=== PATIENT | male | born 1985 | race Caucasian/White ===

== ENCOUNTER 2016-06-02 06:03 | Emergency (ER) | payer SELFPAY ==
[2016-06-02 06:30] VITALS: RESP 16; TEMP 98.5
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
== END 2016-06-02 06:33 ==
LOC: ER 06:03
DX: F10.129 Alcohol abuse with intoxication, unspecified (principal); R11.10 Vomiting, unspecified; V48.5XXA Car driver injured in noncollision transport accident in traffic accident, initial encounter
CPT/HCPCS: 99282